=== PATIENT | female | born 1980 | race Caucasian/White ===

== ENCOUNTER 2018-05-28 09:09 | Emergency (ER) | payer MEDICAID, SELFPAY ==
[2018-05-28 09:22] VITALS: BP 168/117; PULSE 89; RESP 16; TEMP 36.9; O2SAT 97
--- NOTE | 2018-05-28 09:52 | W.ED.GENAD ---
Discharge Plan Disposition Patient Disposition: HOME Condition: Fair Discharge Details Chief Complaint: Headache Clinical Impression: Sinusitis Primary Care Provider: Anna,Local ED Provider: Rachelle Carlson Home Meds and New Rx's Prescriptions: New amoxicillin-pot clavulanate [Augmentin] 875-125 mg tablet 1 tab PO BID Qty: 14 RF: 0 Discharge Instructions Instructions: Sinusitis (ED) Additional Instructions: Encourage hydration. Stop smoking. Please take Augmentin as prescribed to help with sinus infection. If you develop fever/chills, inability to stay hydrated, increased pain, visual changes, neck pain or other new/worsening symptoms please seek care urgently once again. May try nasal saline or Afrin nasal spray to help with symptomatic management. Please do not use Afrin for more than 3 days. He may continue with Tylenol and/or ibuprofen as needed for discomfort. Please take 600 mg of ibuprofen every 6 hours, 1000 mg of Tylenol every 6 hours as needed. I have asked our care associate to help facilitate follow-up with primary care, they should be in contact with you. Stand Alone Forms: Work Release Discharge Data Discharge Date/Time-TO BE ENTERED AT DEPARTURE: 05/28/18 10:06 Medical Decision Making Patient is a 37-year-old female presents today with chief complaint of right maxillary sinus discomfort. She reports the pain began a week and a half ago and is progressively been increasing. She reports that particularly over the past few days, pain has greatly increased. She denies any fevers or chills. Is also endorsing sore throat, congestion. States that she has a chronic cough which she associates with smoking, no change in this. She did have nausea and vomiting x1 last night. Denies any generalized headache. No pain in her neck. No rash. LMP was 1 week ago, patient is status post tubal ligation. Patient has been using Tylenol and/or ibuprofen to help with discomfort, states this is been helping minimally. However, despite these efforts, she reports she has difficulty sleeping secondary to this discomfort. On exam, patient has discomfort with palpation over the right maxillary sinus. No pain over the frontal. She does have some mild discomfort on the left maxillary sinus. Patient appears nontoxic. She is currently afebrile. Lungs are clear, posterior oropharynx is mildly erythematous. Patient and I discussed [id number] and home remedies to help with her discomfort and help with symptomatic management. She will be placed on Augmentin for sinusitis. Advise follow-up with primary care. As the patient is not having locally, I have asked her care associate help facilitate follow-up with primary care in the next 2 weeks. We discussed new/worsening symptoms when to seek care urgently once again. All of her questions and concerns were addressed and she is in agreement with this plan. HPI General Mode of arrival: ambulatory. Date/Time Provider Initiated Documentation: 05/28/18 09:47. Limitations to Documentation: no limitations. Information obtained by: patient. History of Present Illness 37 year old F presents to the emergency department with the chief complaint of sinus pain, described as moderate, with intensity rated at 8. Quality is described as aching, and is localized to the face. Patient reports no radiation. Patient started experiencing this week(s) (1.5) and it has been constant. No relieving factors improve symptom(s), Other factors that worsen symptoms (worse when laying flat) . Patient notes denies chest pain, cough, fever/chills, headaches, loss of appetite, nausea/vomiting and rash. Patient did receive the following treatments prior to arrival, NSAID Related Data Home Medications Medication Instructions Recorded Confirmed amoxicillin-pot clavulanate 1 tab PO BID #14 tab 05/28/18 [Augmentin] Previous Rx's Medication Instructions Recorded amoxicillin-pot clavulanate 1 tab PO BID #14 tab 05/28/18 [Augmentin] Allergies Allergy/AdvReac Type Severity Reaction Status Date / Time No Known Allergies Allergy Unverified 05/28/18 09:24 General Stated Complaint: Headache YARELY: 3 Review of Systems Constitutional Reports as per HPI, Denies chills, Denies fever(s) and Denies headache(s) Eyes Reports as per HPI, Denies eye discharge and Denies irritation ENT Reports as per HPI, Denies dental pain, Denies vertigo, Denies ear discharge, Denies otalgia, Reports facial pain, Denies headache(s), Denies mouth pain, Reports nasal congestion, Denies nasal discharge, Denies neck mass, Denies neck pain, Reports sinus pain, Reports sinus pressure, Reports sore throat and Denies throat swelling Cardiovascular Reports as per HPI, Denies chest pain and Denies dyspnea Respiratory Denies dyspnea Gastrointestinal Reports as per HPI, Denies abdominal pain, Denies change in bowel habits, Denies nausea and Denies vomiting Musculoskeletal Denies neck pain Integumentary/Breasts Reports as per HPI and Denies rash Neurologic Denies vertigo and Denies headache(s) Allergic/Immunologic Denies throat swelling [facility] Social History Smoking/Tobacco Use Status: Current every day Social History Smoking/Tobacco Use Status: Current every day Exam Const General: cooperative, healthy appearing, comfortable, no acute distress, well developed and well groomed Nutritional Appearance: average body habitus and well nourished Orientation: alert and awake HENOR Head: normal to inspection, normocephalic and atraumatic Ears: hearing grossly normal bilaterally, external ears normal and TM's normal bilaterally General nose exam: external nose normal and nares normal Face and sinus: face symmetric, no crepitus, no ecchymosis, no erythema, no fluctuance and sinus tenderness (pain with palpation and percussion over the left maxillary, mild tenderness over the right) maxillary; not frontal Mouth: oral mucosae normal, lip normal, tongue normal, oropharynx normal and moist mucous membranes Teeth and gingiva: dentition normal Throat: posterior oropharynx normal, tonsils normal and uvula midline Eyes General: appearance normal, both eyes and all related structures Neck Neck: normal visual inspection, full ROM, no lymphadenopathy and no meningeal signs Resp Effort & Inspection: normal respiratory effort, able to speak in complete sentences and no respiratory distress Auscultation: clear to auscultation bilaterally, no rales, no rhonchi and no wheezes Cardio Rate: regular rate Rhythm: regular rhythm Heart Sounds: S1 normal and S2 normal Skin General skin exam: no rashes or lesions noted Neuro General: alert and awake Cognition: normal cognition Speech: speech normal Gait: normal gait Psych Appearance: grossly normal and well kempt Mental Status: mental status grossly normal Speech and Movement: speech and movement normal Course Vital Signs Temperature 36.9 C 05/28/18 09:22 Pulse 89 05/28/18 09:22 Respiratory Rate 16 05/28/18 09:22 Blood Pressure 168/117 H 05/28/18 09:22 Pulse Oximetry 97 05/28/18 09:22 Temperature 36.9 C 05/28/18 09:22 Temperature Source Temporal Artery Scan 05/28/18 09:22 Pulse 89 05/28/18 09:22 Respiratory Rate 16 05/28/18 09:22 Respiratory Effort 05/28/18 09:25 Blood Pressure 168/117 H 05/28/18 09:22 Pulse Oximetry 97 05/28/18 09:22 Oxygen Delivery Method Room Air 05/28/18 09:22 Oxygen Flow Rate 0 05/28/18 09:22 Pain Level 8 05/28/18 09:34
--- NOTE | 2018-05-28 09:55 | ED.GENADUL_ITS ---
Discharge Plan Disposition Patient Disposition: HOME Condition: Fair Discharge Details Chief Complaint: Headache Clinical Impression: Sinusitis Primary Care Provider: Anna,Local ED Provider: Rachelle Carlson Home Meds and New Rx's Prescriptions: New amoxicillin-pot clavulanate [Augmentin] 875-125 mg tablet 1 tab PO BID Qty: 14 RF: 0 Discharge Instructions Instructions: Sinusitis (ED) Additional Instructions: Encourage hydration. Stop smoking. Please take Augmentin as prescribed to help with sinus infection. If you develop fever/chills, inability to stay hydrated, increased pain, visual changes, neck pain or other new/worsening symptoms please seek care urgently once again. May try nasal saline or Afrin nasal spray to help with symptomatic management. Please do not use Afrin for more than 3 days. He may continue with Tylenol and/or ibuprofen as needed for discomfort. Please take 600 mg of ibuprofen every 6 hours, 1000 mg of Tylenol every 6 hours as needed. I have asked our anesthesiologist and critical care to help facilitate follow-up with primary care , they should be in contact with you. Stand Alone Forms: Work Release Discharge Data Discharge Date/Time-TO BE ENTERED AT DEPARTURE: 05/28/18 10:06 Medical Decision Making Patient is a 37-year-old female presents today with chief complaint of right maxillary sinus discomfort. She reports the pain began a week and a half ago and is progressively been increasing. She reports that particularly over the past few days, pain has greatly increased. She denies any fevers or chills. Is also endorsing sore throat, congestion. States that she has a chronic cough which she associates with smoking, no change in this. She did have nausea and vomiting x1 last night. Denies any generalized headache. No pain in her neck. No rash. LMP was 1 week ago, patient is status post tubal ligation. Patient has been using Tylenol and/or ibuprofen to help with discomfort, states this is been helping minimally. However, despite these efforts, she reports she has difficulty sleeping secondary to this discomfort. On exam, patient has discomfort with palpation over the right maxillary sinus. No pain over the frontal. She does have some mild discomfort on the left maxillary sinus. Patient appears nontoxic. She is currently afebrile. Lungs are clear, posterior oropharynx is mildly erythematous. Patient and I discussed [id number] and home remedies to help with her discomfort and help with symptomatic management. She will be placed on Augmentin for sinusitis. Advise follow-up with primary care. As the patient is not having locally, I have asked her anesthesiologist and critical care help facilitate follow- up with primary care in the next 2 weeks. We discussed new/worsening symptoms when to seek care urgently once again. All of her questions and concerns were addressed and she is in agreement with this plan. HPI General Mode of arrival: ambulatory . Date/Time Provider Initiated Documentation: 05/28/18 09:47 . Limitations to Documentation: no limitations . Information obtained by: patient . History of Present Illness 37 year old F presents to the emergency department with the chief complaint of sinus pain, described as moderate, with intensity rated at 8. Quality is described as aching, and is localized to the face. Patient reports no radiation. Patient started experiencing this week(s) (1.5) and it has been constant. No relieving factors improve symptom(s), Other factors that worsen symptoms (worse when laying flat) . Patient notes denies chest pain, cough, fever/chills, headaches, loss of appetite, nausea/vomiting and rash. Patient did receive the following treatments prior to arrival, NSAID Related Data Home Medications Medication Instructions Recorded Confirmed amoxicillin-pot clavulanate 1 tab PO BID #14 tab 05/28/18 [Augmentin] Previous Rx's Medication Instructions Recorded amoxicillin-pot clavulanate 1 tab PO BID #14 tab 05/28/18 [Augmentin] Allergies Allergy/AdvReac Type Severity Reaction Status Date / Time No Known Allergies Allergy Unverified 05/28/18 09:24 General Stated Complaint: Headache YARELY: 3 Review of Systems Constitutional Reports as per HPI, Denies chills, Denies fever(s) and Denies headache(s) Eyes Reports as per HPI, Denies eye discharge and Denies irritation ENT Reports as per HPI, Denies dental pain, Denies vertigo, Denies ear discharge, Denies otalgia, Reports facial pain, Denies headache(s), Denies mouth pain, Reports nasal congestion, Denies nasal discharge, Denies neck mass, Denies neck pain, Reports sinus pain, Reports sinus pressure, Reports sore throat and Denies throat swelling Cardiovascular Reports as per HPI, Denies chest pain and Denies dyspnea Respiratory Denies dyspnea Gastrointestinal Reports as per HPI, Denies abdominal pain, Denies change in bowel habits, Denies nausea and Denies vomiting Musculoskeletal Denies neck pain Integumentary/Breasts Reports as per HPI and Denies rash Neurologic Denies vertigo and Denies headache(s) Allergic/Immunologic Denies throat swelling [facility] Social History Smoking/Tobacco Use Status: Current every day Social History Smoking/Tobacco Use Status: Current every day Exam Const General: cooperative, healthy appearing, comfortable, no acute distress, well developed and well groomed Nutritional Appearance: average body habitus and well nourished Orientation: alert and awake HENOH Head: normal to inspection, normocephalic and atraumatic Ears: hearing grossly normal bilaterally, external ears normal and TM's normal bilaterally General nose exam: external nose normal and nares normal Face and sinus: face symmetric, no crepitus, no ecchymosis, no erythema, no fluctuance and sinus tenderness (pain with palpation and percussion over the left maxillary, mild tenderness over the right) maxillary; not frontal Mouth: oral mucosae normal, lip normal, tongue normal, oropharynx normal and moist mucous membranes Teeth and gingiva: dentition normal Throat: posterior oropharynx normal, tonsils normal and uvula midline Eyes General: appearance normal, both eyes and all related structures Neck Neck: normal visual inspection, full ROM, no lymphadenopathy and no meningeal signs Resp Effort & Inspection: normal respiratory effort, able to speak in complete sentences and no respiratory distress Auscultation: clear to auscultation bilaterally, no rales, no rhonchi and no wheezes Cardio Rate: regular rate Rhythm: regular rhythm Heart Sounds: S1 normal and S2 normal Skin General skin exam: no rashes or lesions noted Neuro General: alert and awake Cognition: normal cognition Speech: speech normal Gait: normal gait Psych Appearance: grossly normal and well kempt Mental Status: mental status grossly normal Speech and Movement: speech and movement normal Course Vital Signs Temperature 36.9 C 05/28/18 09:22 Pulse 89 05/28/18 09:22 Respiratory Rate 16 05/28/18 09:22 Blood Pressure 168/117 H 05/28/18 09:22 Pulse Oximetry 97 05/28/18 09:22 Temperature 36.9 C 05/28/18 09:22 Temperature Source Temporal Artery Scan 05/28/18 09:22 Pulse 89 05/28/18 09:22 Respiratory Rate 16 05/28/18 09:22 Respiratory Effort 05/28/18 09:25 Blood Pressure 168/117 H 05/28/18 09:22 Pulse Oximetry 97 05/28/18 09:22 Oxygen Delivery Method Room Air 05/28/18 09:22 Oxygen Flow Rate 0 05/28/18 09:22 Pain Level 8 05/28/18 09:34
== END 2018-05-28 10:06 | disposition home or self-care (01) ==
LOC: ER 10:08
PROVIDERS: Emergency Provider Physician Assistant
DX: J01.90 Acute sinusitis, unspecified (principal); F17.210 Nicotine dependence, cigarettes, uncomplicated
CPT/HCPCS: 99283